=== PATIENT | male | born 1955 | race Caucasian/White ===

== ENCOUNTER 2016-09-28 14:01 | Inpatient (IN) | payer OTHER, MEDICARE ==
[~2016-09-28] VITALS: Ht 190.5 cm; Wt 94.5 kg
[~2016-09-28 14:01] MED LIST: AMLO5TAB22 PO; ASPI81TA82 PO; CLON.1 PO; INSU100V2 IJ; INSU100V3 SC; LISI-363 PO; LOPR50TA12 PO; NIAC50TA PO; OXYC1SOL5 PO; PRAV20 PO
[2016-09-28 14:04] VITALS: BP 129/62; PULSE 64; RESP 20; TEMP 98.3; O2SAT 100
--- NOTE | 2016-09-28 16:13 | PD ---
HPI Chief Complaint: Medical Clearance Time Seen by Provider: 16:08 Travel History International Travel<30 days: No Contact w/Intl Traveler<30days: No Traveled to known affect area: No History of Present Illness HPI 60-year-old patient with history of diabetes, has had tilt limitations in the past, presents to the ER sent in by his bench assembler for a right pinky toe amputation due to chronic ulcer, diabetic toe. He denies any fevers or any other issues. Modifying Factors: None Associated Signs & Symptoms: Right toe amputation, sent in by bench assembler Risk Factors: Diabetes PFSH Past Medical History Arthritis: No Asthma: No Autoimmune Disease: No Blood Disorders: No Anxiety: No Depression: No Heart Rhythm Problems: No Cancer: No Cardiovascular Problems: Yes Chemotherapy: No Chest Pain: No Congestive Heart Failure: No COPD: No Cerebrovascular Accident: No Diabetes: Yes Diminished Hearing: No GERD: No Glaucoma: No Genitourinary: No Hepatitis: No Hiatal Hernia: No Hypertension: Yes Immune Disorder: No Kidney Stones: No Musculoskeletal: No Neurologic: No Psychiatric: No Reproductive: No Respiratory: No Integumentary: Yes (HX OF DIABETIC FOOT ULCERS) Radiation Therapy: No Renal Failure: No Seizures: No Sickle Cell Disease: No Sleep Apnea: No Thyroid Disease: No Ulcer: No Past Surgical History Abdominal Surgery: No Arteriovenous Shunt: No Cardiac Surgery: No Ear Surgery: No Eye Surgery: Yes (RIGHT EYE PPV, CATARACT SURGERY BILATERAL EYES) Genitourinary Surgery: No Gynecologic Surgery: No Insulin Pump: No Joint Replacement: No Oral Surgery: No Pacemaker: No Thoracic Surgery: No Other Surgery: Yes (4TH AND PINKY TOE AMPUTATION ON LEFT FOOT) Social History Alcohol Use: Yes (OCCASIONAL) Tobacco Use: No Substance Use: No Allergies-Medications (Allergen,Severity, Reaction): Coded Allergies: Penicillin (Verified Allergy, Severe, 09/28/16) CHILDHOOD ALLERGY *MDRO Multi-Drug Resistant Organism (Verified Adverse Reaction, Unknown, ) MRSA foot wound 07/2015 Reported Meds & Prescriptions Reported Meds & Active Scripts Active Catapres (Clonidine HCl) 0.1 Mg Tab 0.1 Mg PO Q8HR 30 Days Oxycodone/Acetaminophen 5 mg/325 mg 5 mg/325 mg Tab 1 Tab PO Q6H PRN 7 Days Reported Niacin 50 Mg Tab 0 PO DAILY UNKNOWN DOSE Aspir-81 (Aspirin) 81 Mg Tab 81 Mg PO DAILY Amlodipine Besylate 5 mg (Amlodipine Besylate) 5 Mg Tab 1 Tab PO DAILY Pravastatin Sodium 20 Mg Tab 1 Tab PO HS Humulin R (Insulin Human Regular) 100 Units/Ml Vial 1 IJ BID Lopressor (Metoprolol Tartrate) 50 Mg Tab 50 Mg PO BID Lisinopril 20 mg (Lisinopril) 20 Mg Tab 20 Mg PO BID Humulin N (Insulin Human NPH) Inj 40-60 Units SC BIDAC SLIDING SCALE Review of Systems Except as stated in HPI: all other systems reviewed are Neg Physical Exam Narrative GENERAL: Well-developed middle age white male patient currently not acute distress. Awake and oriented 3. SKIN: Focused skin assessment warm/dry. HEAD: Atraumatic. Normocephalic. EYES: Pupils equal and round. No scleral icterus. No injection or drainage. ENT: No nasal bleeding or discharge. Mucous membranes pink and moist. NECK: Trachea midline. No JVD. CARDIOVASCULAR: Regular rate and rhythm. No murmur appreciated. RESPIRATORY: No accessory muscle use. Clear to auscultation. Breath sounds equal bilaterally. GASTROINTESTINAL: Abdomen soft, non-tender, nondistended. Hepatic and splenic margins not palpable. MUSCULOSKELETAL: No obvious deformities. No clubbing. No cyanosis. No edema. NEUROLOGICAL: Awake and alert. No obvious cranial nerve deficits. Motor grossly within normal limits. Normal speech. PSYCHIATRIC: Appropriate mood and affect; insight and judgment normal. Right foot: There is a notable right toe ulcerated area with no significant surrounding erythema at this point. Data Data Last Documented VS Vital Signs Date Time Temp Pulse Resp B/P Pulse Ox O2 Delivery O2 Flow Rate FiO2 09/28/16 14:04 98.3 64 20 129/62 100 Room Air Orders Complete Blood Count With Diff (09/28/16 16:08) Basic Metabolic Panel (Bmp) (09/28/16 16:08) Consult Podiatry (09/28/16 ) [facility] Medical Decision Making Medical Screen Exam Complete: Yes Emergency Medical Condition: Yes Medical Record Reviewed: Yes Differential Diagnosis Right toe amputation Narrative Course Case was briefly discussed with Dr. Randall who would like me to medically admit the patient, planning on possible amputation tomorrow, nothing by mouth after midnight. Case was discussed with Dr. Mccormick for admission. Lab work was ordered for the patient. Diagnosis Primary Impression: Diabetic foot ulcer associated with type 2 diabetes mellitus Admitting Information Admitting Physician Requests: Admit Rosey Rosen MD Sep 28, 2016 16:12
[2016-09-28 16:37] LABS: AUTOMATED NEUTROPHIL # 6.2 TH/MM3 (1.8-7.7); BASOPHIL % 0.3 % (0.0-2.0); EOSINOPHIL # 0.2 TH/MM3 (0-0.4); EOSINOPHIL % 1.8 % (0.0-4.0); HEMO FLAGS DIFF FINAL; LYMPH % 21.2 % (9.0-44.0); LYMPHOCYTE # 1.9 TH/MM3 (1.0-4.8); MEAN CELL VOLUME 79.7 FL (80.0-100.0); MEAN CORPUSCULAR HEMOGLOBIN 26.4 PG (27.0-34.0); MEAN CORPUSCULAR HGB CONC 33.1 % (32.0-36.0); MONO % 7.7 % (0.0-8.0); PLATELET COUNT 331 TH/MM3 (150-450); RED BLOOD COUNT 4.02 MIL/MM3 (4.50-5.90); RED CELL DISTRIBUTION WIDTH 15.1 % (11.6-17.2)
[2016-09-28 16:55] LABS: BICARBONATE 24.8 MEQ/L (21.0-32.0); POTASSIUM 5.1 MEQ/L (3.5-5.1)
[2016-09-28] MEDS ORDERED: NALOXONE HCL 0.4 MG/ML AMP IV PRN (17:15)
[2016-09-28] MEDS ORDERED: ONDANSETRON HCL 4 MG/2 ML VIAL IVP PRN (17:15)
[2016-09-28] MEDS ORDERED: GLUCAGON 1 MG/ML VIAL OTHER PRN (17:15)
[2016-09-28] MEDS ORDERED: DEXTROSE 50% IN WATER 50 ML VIAL(D50) IV PUSH PRN (17:15)
[2016-09-28] MEDS ORDERED: ACETAMINOPHEN/HYDROcodone 325 MG/7.5 MG TAB PO PRN (17:15)
[2016-09-28] MEDS ORDERED: SODIUM CHLORIDE 0.9% FLUSH 10 ML FLUSH IV FLUSH PRN (17:15)
[2016-09-28] MEDS ORDERED: ACETAMINOPHEN/HYDROcodone 325 MG/5 MG TAB PO PRN (17:15)
[2016-09-28] MEDS ORDERED: MORPHINE SULFATE 4 MG/ML INJ IV PRN (17:15)
[2016-09-28] MEDS ORDERED: ACETAMINOPHEN 325 MG TAB PO PRN ×2 (17:15)
[2016-09-28] MEDS ORDERED: INSU100V3 SQ (17:22)
[2016-09-28] MEDS ORDERED: ASPI81TA5 PO (17:22)
[2016-09-28] MEDS ORDERED: AMLO5TAB2 PO (17:22)
[2016-09-28] MEDS ORDERED: INSU100V2 SQ (17:22)
[2016-09-28] MEDS ORDERED: METO50TA PO (17:24)
[2016-09-28] MEDS ORDERED: PERC5TAB12 PO (17:24)
[2016-09-28] MEDS ORDERED: NIAC50TA4 PO (17:24)
[2016-09-28] MEDS ORDERED: PRAV20TA2 PO (17:24)
[2016-09-28] MEDS ORDERED: LISI-515 PO (17:24)
--- NOTE | 2016-09-28 17:25 | HHI.HP ---
[facility]Staff Admission Diagnosis diabetes/toe amputation Diagnoses: Chief Complaint: Right foot ulcer Travel History International Travel<30 Days: No Contact w/Intl Traveler <30 Da: No Traveled to Known Affected Are: No History of Present Illness 60-year-old male with a past medical history of HTN, DM, HLD who was sent by his art history professor for amputation of his right pinkie toe. The patient states that he's had an ulcer on his right. Toe for quite some time, and has been receiving outpatient wound care management with his art history professor, Dr. Randall. He states that due to the worsening appearance of the wound, his art history professor recommended he come to the hospital for admission and amputation of his pinky toe tomorrow. Otherwise, the patient has been doing well and denies any complaints. He denies any fevers or chills. He denies any pain in his foot. He denies any chest pain, shortness of breath, headache, lightheadedness, dizziness, numbness, tingling, nausea, vomiting, diarrhea, constipation. He does state that he had a fall a few weeks ago, with some occasional spasms of his right flank. Review of Systems Except as stated in HPI: all other systems reviewed are Neg Past Family Social History Past Medical History Hypertension Hyperlipidemia Diabetes mellitus Past Surgical History Left foot toe amputations Bone removed from right great toe Cataract surgery Reported Medications Humulin N Inj (Insulin Human NPH) 1,000 Unit/10 Ml Vial 65 Units SQ BID Humulin R Inj (Insulin Human Regular) 1,000 Unit/10 Ml Vial sliding scale, usually 20 Units SQ BIDAC Aspirin DR (Aspirin) 81 Mg Tabdr 81 Mg PO DAILY Amlodipine (Amlodipine Besylate) 5 Mg Tab 5 Mg PO DAILY Allergies: Coded Allergies: Penicillin (Verified Allergy, Severe, 09/28/16) CHILDHOOD ALLERGY *MDRO Multi-Drug Resistant Organism (Verified Adverse Reaction, Unknown, ) MRSA foot wound 07/2015 Active Ordered Medications Current Medications Medications (Trade) Dose Ordered Sig/Mirna Route Start Time Stop Time Status Last Admin (NS 1000 ml Inj) 1,000 ml @ 100 mls/hr Q10H IV 09/28/16 17:08 UNV (NS Flush) 2 ml UNSCH PRN IV FLUSH 09/28/16 17:15 UNV (NS Flush) 2 ml BID IV FLUSH 09/28/16 21:00 UNV (Tylenol) 650 mg Q4H PRN PO 09/28/16 17:15 UNV (Zofran Inj) 4 mg Q6H PRN IVP 09/28/16 17:15 UNV (Colace) 100 mg Q12H PO 09/28/16 17:15 UNV (Tylenol) 650 mg Q6H PRN PO 09/28/16 17:15 UNV ([place] 5-325 Mg) 1 tab Q4H PRN PO 09/28/16 17:15 UNV ([place] 7.5-325 Mg) 1 tab Q4H PRN PO 09/28/16 17:15 UNV (Morphine Inj) 4 mg Q3H PRN IV 09/28/16 17:15 UNV (Narcan Inj) 0.4 mg UNSCH PRN IV 09/28/16 17:15 UNV (D50w (Vial) Inj) 25 ml UNSCH PRN IV PUSH 09/28/16 17:15 UNV (Glucagon Inj) 1 mg UNSCH PRN OTHER 09/28/16 17:15 UNV (NovoLIN N INJ) 65 units BID@08,17 SQ 09/29/16 08:00 UNV Family History Father had heart bypass surgery Social History Denies alcohol, tobacco, or drug use Lives alone Physical Exam Vital Signs Vital Signs Date Time Temp Pulse Resp B/P Pulse Ox O2 Delivery O2 Flow Rate FiO2 09/28/16 14:04 98.3 64 20 129/62 100 Room Air Physical Exam GENERAL: Well-developed well-nourished. In no acute distress. SKIN: Warm and dry. Right foot ulcer. HEENT: Normocephalic. Pupils equal and round. Mucous membranes pink and moist. CARDIOVASCULAR: Regular rate and rhythm. No murmur appreciated. RESPIRATORY: No accessory muscle use. Clear to auscultation. Breath sounds equal bilaterally. GASTROINTESTINAL: Abdomen soft, non-tender, nondistended. Bowel sounds x4. MUSCULOSKELETAL: Decreased hair in the bilateral ankles with palpable peripheral pulses of the left foot and faint pulses on the right. No clubbing or cyanosis. No edema. NEUROLOGICAL: Awake and alert. No focal neurological deficits. Moves upper and lower extremities spontaneously. Normal speech. PSYCHIATRIC: Appropriate mood and affect; insight and judgment normal. Laboratory Laboratory Tests Test 09/28/16 16:20 White Blood Count 9.0 Red Blood Count 4.02 Hemoglobin 10.6 Hematocrit 32.0 Mean Corpuscular Volume 79.7 Mean Corpuscular Hemoglobin 26.4 Mean Corpuscular Hemoglobin 33.1 Concent Red Cell Distribution Width 15.1 Platelet Count 331 Mean Platelet Volume 7.8 Neutrophils (%) (Auto) 69.0 Lymphocytes (%) (Auto) 21.2 Monocytes (%) (Auto) 7.7 Eosinophils (%) (Auto) 1.8 Basophils (%) (Auto) 0.3 Neutrophils # (Auto) 6.2 Lymphocytes # (Auto) 1.9 Monocytes # (Auto) 0.7 Eosinophils # (Auto) 0.2 Basophils # (Auto) 0.0 CBC Comment DIFF FINAL Differential Comment Sodium Level 132 Potassium Level 5.1 Chloride Level 99 Carbon Dioxide Level 24.8 Anion Gap 8 Blood Urea Nitrogen 28 Creatinine 1.94 Estimat Glomerular Filtration 36 Rate Random Glucose 341 Calcium Level 8.9 Result Diagram: 09/28/16 1620 09/28/16 1620 Assessment and Plan Assessment and Plan 60-year-old male with a past medical history of HTN, DM, HLD who was sent by his art history professor for amputation of his right pinkie toe Right foot diabetic foot ulcer: Failed outpatient wound management. Sent by his art history professor, Dr. Diop, consulted. Afebrile with no leukocytosis. Antibiotics per podiatry. Continue pain control with oral and intravenous narcotics. Check preop EKG and coags. Diabetes mellitus: With hyperglycemia at this time, random glucose 341. Resume home NPH 65 units twice daily on a decreased dose while nothing by mouth. Continue sliding scale coverage. Monitor Accu-Cheks. MAITE on CKD stage III: Creatinine 1.94, previously 1.32 on 07/28/15. IVF. Follow -up BMP. Hold SARAH inhibitor for now. Hypertension/hyperlipidemia: Chronic, stable. Continue home medications. DVT prophylaxis: TEDs. Hold off on SCDs with probable underlying PAD. Start chemical prophylaxis when okay with surgery. Written by Ron Arriola, acting as scribe for Dr. Mccormick on 09/28/16 at 17:25. Discussed Condition With Patient Ron Arriola Sep 28, 2016 17:25 Krystle Mccormick MD Sep 28, 2016 17:49
[2016-09-28] MEDS ORDERED: INSULIN HUMAN NPH 1,000 UNITS/10 ML VIAL SQ ONE (17:45)
[2016-09-28] MEDS: DOCUSATE SODIUM 100 MG CAP PO SCH (18:16)
--- NOTE | 2016-09-28 20:57 | EKG ---
Date Performed: 09/28/2016 Time Performed: 18:18:26 PTAGE: 60 years EKG: Sinus rhythm POSSIBLE RIGHT VENTRICULAR CONDUCTION DELAY BORDERLINE ECG NO SIGNIFICANT CHANGE FROM PRIOR ELECTROC ARDIOGRAM. PREVIOUS TRACING : 07/22/2015 14.19 DOCTOR: Jeffrey Calvo Interpretating Date/Time 09/28/2016 20:56:57
[2016-09-28 21:00] VITALS: BP 155/70; PULSE 71; RESP 18; TEMP 97.6; O2SAT 99
[2016-09-28] MEDS: SODIUM CHLORIDE 0.9% FLUSH 10 ML FLUSH IV FLUSH SCH (21:00)
[2016-09-28] MEDS: METOPROLOL TARTRATE 50 MG TAB PO SCH (22:28)
[2016-09-28] MEDS: INSULIN ASPART SUPPLEMENTAL SCALE SQ SCH (22:28)
[2016-09-28] MEDS: PRAVASTATIN SOD 20 MG TAB PO SCH (22:28)
[2016-09-29] VITALS (7 sets, daily range): BP systolic 150–191; BP diastolic 65–83; PULSE 58–69; RESP 17–19; TEMP 96.7–97.9; O2SAT 97–99
[2016-09-29] MEDS: SODIUM CHLOR 0.9% 1000 ML INJ 1,000 ML IV SCH ×2 (04:15→11:20)
[2016-09-29] MEDS: DOCUSATE SODIUM 100 MG CAP PO SCH ×2 (05:22→23:24)
[2016-09-29] MEDS: INSULIN ASPART SUPPLEMENTAL SCALE SQ SCH ×4 (06:27→21:00)
[2016-09-29 07:44] LABS: AUTOMATED NEUTROPHIL # 6.1 TH/MM3 (1.8-7.7); BASOPHIL % 0.4 % (0.0-2.0); EOSINOPHIL # 0.2 TH/MM3 (0-0.4); EOSINOPHIL % 2.3 % (0.0-4.0); HEMATOCRIT 30.9 % (39.0-51.0); HEMO FLAGS DIFF FINAL; LYMPH % 23.3 % (9.0-44.0); LYMPHOCYTE # 2.1 TH/MM3 (1.0-4.8); MEAN CELL VOLUME 79.5 FL (80.0-100.0); MEAN CORPUSCULAR HEMOGLOBIN 26.8 PG (27.0-34.0); MEAN CORPUSCULAR HGB CONC 33.7 % (32.0-36.0); MONO % 6.9 % (0.0-8.0); NEUT % 67.1 % (16.0-70.0); PLATELET COUNT 339 TH/MM3 (150-450); RED BLOOD COUNT 3.89 MIL/MM3 (4.50-5.90); RED CELL DISTRIBUTION WIDTH 15.2 % (11.6-17.2); WHITE BLOOD COUNT 9.1 TH/MM3 (4.0-11.0)
[2016-09-29 07:52] LABS: PROTHROMBIN TIME - PATIENT 11.2 SEC (9.8-11.6)
[2016-09-29] MEDS: INSULIN HUMAN NPH 1,000 UNITS/10 ML VIAL SQ SCH ×2 (08:00→17:00)
[2016-09-29 08:11] LABS: ALKALINE PHOSPHATASE 116 U/L (45-117); ALT (GPT) 20 U/L (12-78); ANION GAP 4 MEQ/L (5-15); AST (GOT) 22 U/L (15-37); BLOOD UREA NITROGEN 26 MG/DL (7-18); CHLORIDE 106 MEQ/L (98-107); GLOMERULAR FILTRATION RATE 42 ML/MIN (>89); POTASSIUM 4.1 MEQ/L (3.5-5.1); SODIUM (NA) 140 MEQ/L (136-145); TOTAL BILIRUBIN ADULT 0.3 MG/DL (0.2-1.0)
[2016-09-29] MEDS: SODIUM CHLORIDE 0.9% FLUSH 10 ML FLUSH IV FLUSH SCH ×2 (08:41→23:25)
[2016-09-29] MEDS: METOPROLOL TARTRATE 50 MG TAB PO SCH ×2 (08:41→23:25)
[2016-09-29] MEDS ORDERED: amLODIPine BESYLATE 5 MG TAB PO SCH (09:00)
--- NOTE | 2016-09-29 09:09 | MB ---
cc: SABINA BARRIENTOS DPM DATE OF CONSULTATION: 09/29/2016 DATE OF : 1955 HISTORY OF PRESENT ILLNESS The patient is a 60-year-old patient of Dr. Randall. He has a history of right toe ulceration chronic for some time and was recommended for surgical intervention by Dr. Randall. Additionally worsening appearance of a heel wound on the left side which was positive for osteomyelitis on outpatient MRI. The patient denies nausea, vomiting, fever, diarrhea or chills. REVIEW OF SYSTEMS A review of systems is unremarkable. PAST MEDICAL HISTORY 1. Hypertension. 2. Hyperlipidemia. 3. Diabetes mellitus. PAST SURGICAL HISTORY 1. Multiple foot amputations. 2. Cataract surgery. MEDICATIONS 1. Humulin N. 2. Humulin R. 3. Aspirin. 4. Amlodipine. ALLERGIES PENICILLIN. PHYSICAL EXAMINATION Lower extremities warm to warm bilaterally. Diminished DP and PT bilaterally. CFT less than 5 seconds. Right fifth digit is ulcerated. Probing does not demonstrate exposed bone. He has a fifth digit varus deformity. There is no pain on palpation. Muscle strength is intact, +5/5 in all quadrants. Left leg with an ulceration on the left lateral fifth metatarsal base distal to the calcaneus. There is some serous drainage, macerated with keratotic tissue periwound. LABORATORY TESTS 09/28/2016 WBC of 9. 09/29/2016 WBC 9.1, RBC 3.89, H&H 10.4 and 30.9. ASSESSMENT 1. Left foot calcaneal osteomyelitis. 2. Right fifth digit chronic ulceration, diabetic, failed outpatient management. Risks, benefits, pros and cons were discussed with the patient, freely consents for surgical intervention. PLAN 1. Right fifth digit amputation. 2. Left foot bone biopsy. No guarantees were given or implied. All questions answered. Plan for surgery on 09/29/2016 at 1530 hours. Also plan for ID consult with a PICC line for his osteomyelitis for six weeks. Will continue to follow the patient while in-house. Sabina Barrientos DPM SR/BT /8:42 AM /9:00 AM
[2016-09-29] MEDS ORDERED: ONDANSETRON HCL 4 MG/2 ML VIAL IV PUSH ONE (12:00)
[2016-09-29] MEDS ORDERED: PROPOFOL 200 MG/20 ML AMP IV ONE (12:00)
[2016-09-29] MEDS ORDERED: ePHEDrine/NS 25 MG/5 ML SYR IV ONE (12:00)
[2016-09-29] MEDS ORDERED: POVIDONE IODINE 5% (ANTISEPSIS KIT) 4 APPLICATIONS EACH NARE PRN (12:30)
[2016-09-29] MEDS ORDERED: SODIUM CHLORID 0.9% 500 ML IV PRN (12:30)
[2016-09-29] MEDS ORDERED: INSULIN HUMAN REGULAR 1,000 UNITS/10 ML VIAL SQ PRN (12:30)
[2016-09-29] MEDS ORDERED: METOPROLOL TARTRATE 25 MG TAB PO PRN (12:30)
[2016-09-29] MEDS ORDERED: CHLORHEXIDINE GLUCONATE 2 % 1 PACK (2 CLOTHS) TOPICAL PRN (12:30)
[2016-09-29] MEDS ORDERED: LACTATED RINGER'S 1000 ML IV PRN (12:30)
--- NOTE | 2016-09-29 12:30 | RADRPT ---
EXAM DATE/TIME: 09/28/2016 00:00 [facility] COMPARISON: No previous studies available for comparison. INDICATIONS : Diabetes, toe amputation TECHNIQUE: Five-station segmental examination of the lower extremities was performed. Pulsed-cuff waveform tracings and pressures were recorded. Ankle-brachial indices and toe-brachial indices were calculated. PRESSURES (mmHg): Brachial (arm): Right iv site Left 140 Lower Thigh: Right 180 Left 193 Calf: Right CNO Left 187 Ankle: Right 159 Left 152 Toe: Right 101 Left 73 LEI: Right 1.14 Left 1.09 TBI: Right 0.72 Left 0.52 PULSED CUFF WAVEFORMS: There is diminished amplitude and pressures in the left toe. LEI is normal the ankles. CT angiograp hy may be of benefit to exclude embolization on the right. There is evidence for inflow stenosis. CONCLUSION: Unremarkable segmental evaluation of the lower extremities. [place] MD FACR on September 29, 2016 at 12:27 Board Certified Radiologist. This report was verified electronically.
--- NOTE | 2016-09-29 13:16 | HHI.PR ---
Subjective Remarks Laying in bed he had toe amputation today, no fever or chills no chest pain, the pressure still not controlled with increased amlodipine seen ID consult placed for antibiotic management Objective Vitals Vital Signs Date Time Temp Pulse Resp B/P Pulse Ox O2 Delivery O2 Flow Rate FiO2 09/29/16 12:42 97.0 58 18 169/77 97 09/29/16 09:02 97.7 68 18 172/77 98 09/29/16 04:15 97.1 68 17 158/70 99 09/29/16 00:00 97.9 69 17 150/65 97 09/28/16 21:00 97.6 71 18 155/70 99 09/28/16 14:04 98.3 64 20 129/62 100 Room Air I/O 09/28/16 09/28/16 09/28/16 09/29/16 09/29/16 09/29/16 07:00 15:00 23:00 07:00 15:00 23:00 Intake Total 400 ml 600 ml Output Total 600 ml 900 ml Balance -200 ml -300 ml Intake Oral 400 ml 600 ml Output Urine Total 600 ml 900 ml # Bowel Movements 0 0 Result Diagram: 09/29/16 0709/29/1611 Objective Remarks GENERAL: Well-developed well-nourished. In no acute distress. SKIN: Warm and dry. Right foot ulcer. HEENT: Normocephalic. Pupils equal and round. Mucous membranes pink and moist. CARDIOVASCULAR: Regular rate and rhythm. No murmur appreciated. RESPIRATORY: No accessory muscle use. Clear to auscultation. Breath sounds equal bilaterally. GASTROINTESTINAL: Abdomen soft, non-tender, nondistended. Bowel sounds x4. MUSCULOSKELETAL: Decreased hair in the bilateral ankles with palpable peripheral pulses of the left foot and faint pulses on the right. No clubbing or cyanosis. No edema. NEUROLOGICAL: Awake and alert. No focal neurological deficits. Moves upper and lower extremities spontaneously. Normal speech. PSYCHIATRIC: Appropriate mood and affect; insight and judgment normal. A/P Assessment and Plan 60-year-old male with a past medical history of HTN, DM, HLD who was sent by his slip cover seamstress for amputation of his right pinkie toe Right foot diabetic foot ulcer: Failed outpatient wound management. Sent by his slip cover seamstress, Dr. Diop, Afebrile with no leukocytosis. Antibiotics per podiatry. Continue pain control with oral and intravenous narcotics. Check preop EKG and coags. Diabetes mellitus: With hyperglycemia at this time, random glucose 341. Resume home NPH 65 units twice daily on a decreased dose while nothing by mouth. Continue sliding scale coverage. Monitor Accu-Cheks. MAITE on CKD stage III: Creatinine trending down 1.94-1.68. IVF. Follow-up BMP. Hold SARAH inhibitor for now. Hypertension/hyperlipidemia: Chronic, stable. Continue home medications. Increase amlodipine DVT prophylaxis: TEDs. Hold off on SCDs with probable underlying PAD. Start chemical prophylaxis when okay with surgery. Krystle Mccormick MD Sep 29, 2016 13:16
[2016-09-29] MEDS ORDERED: BUPIVACAINE HCL PF 0.5% 30 ML VIAL ONE (16:54)
[2016-09-29] MEDS ORDERED: LIDOCAINE HCL 2% 50 ML VIAL ONE (16:54)
[2016-09-29] MEDS ORDERED: GENTAMICIN SULFATE 80 MG/2 ML VIAL ONE (16:55)
[2016-09-29] MEDS ORDERED: DO NOT ADM ANY ANTICOAGULANT DRUGS PRN (18:15)
--- NOTE | 2016-09-29 19:50 | RADRPT ---
EXAM DATE/TIME: 09/29/2016 18:51 [facility] COMPARISON: FOOT RIGHT LIMITED (2VWS), February 06, 2013, 13:06. INDICATIONS : Post op right toe amputation MEDICAL HISTORY : None. SURGICAL HISTORY : None. ENCOUNTER: Initial ACUITY: 1 day PAIN SCORE: 0/10 LOCATION: Right foot FINDINGS: The patient appears to be status post resection of the distal aspect of the first metatarsal and prox imal aspect of the first proximal phalanx. There also appears to be either extensive erosive change or postsurgical change at the second through fourth MTP joints. These findings were present previousl y. The digits appear to have hammertoe deformities. CONCLUSION: Extensive chronic changes as described above. A definite acute abnormality is not cl early identified. Fei Rodriguez MD on September 29, 2016 at 19:39 Board Certified Radiologist. This report was verified electronically.
[2016-09-29] MEDS: PRAVASTATIN SOD 20 MG TAB PO SCH (23:25)
[2016-09-30] VITALS (8 sets, daily range): BP systolic 152–187; BP diastolic 70–88; PULSE 57–71; RESP 18–20; TEMP 96.2–97.3; O2SAT 96–98
[2016-09-30] MEDS: DOCUSATE SODIUM 100 MG CAP PO SCH ×2 (05:57→17:58)
[2016-09-30] MEDS: INSULIN ASPART SUPPLEMENTAL SCALE SQ SCH ×4 (06:11→21:00)
[2016-09-30] MEDS: SODIUM CHLORIDE 0.9% FLUSH 10 ML FLUSH IV FLUSH SCH ×2 (09:00→20:52)
[2016-09-30] MEDS: METOPROLOL TARTRATE 50 MG TAB PO SCH ×2 (09:00→20:52)
[2016-09-30] MEDS: INSULIN HUMAN NPH 1,000 UNITS/10 ML VIAL SQ SCH ×2 (09:12→17:58)
[2016-09-30] MEDS: SODIUM CHLOR 0.9% 1000 ML INJ 1,000 ML IV SCH ×3 (10:00→20:00)
[2016-09-30] MEDS ORDERED: Vancomycin Consult Pharmacy 1 EA OTHER SCH (11:45)
[2016-09-30] MEDS ORDERED: VANCOMYCIN INJ 1,500 MG in SODIUM CHLORID 0.9% 500 ML INJ 500 ML IV ONE (12:00)
--- NOTE | 2016-09-30 12:05 | PD.POD ---
Subjective Podiatric Problems s/p R 5th digit amputation s/p Left calcaneal bone biopsy DOS 08/01/16 Doing well at bedside this am. Pain scale used: 0-10 numeric scale Pain score: 0 Past Med/Surg/Social History Social History Smoking Status: Never Smoker Objective Vital Signs Vital Signs Date Time Temp Pulse Resp B/P Pulse Ox O2 Delivery O2 Flow Rate FiO2 09/30/16 11:30 96 21 09/30/16 09:02 96.2 59 18 187/84 97 09/30/16 04:00 96.3 57 20 164/75 97 09/30/16 00:00 96.6 68 20 167/77 98 09/29/16 20:00 96.7 68 19 168/72 97 09/29/16 19:00 97.7 78 15 148/78 97 Room Air 09/29/16 18:45 68 17 154/68 98 Room Air 09/29/16 18:30 79 15 147/72 97 Nasal Cannula 2 09/29/16 18:18 97.5 69 15 169/77 100 Nasal Cannula 2 09/29/16 15:20 97.0 62 18 191/83 98 09/29/16 12:42 97.0 58 18 169/77 97 Coded Allergies: Penicillin (Verified Allergy, Severe, 09/28/16) CHILDHOOD ALLERGY *MDRO Multi-Drug Resistant Organism (Verified Adverse Reaction, Unknown, ) MRSA foot wound 07/2015 Other Results Laboratory Tests Test 09/28/16 09/29/16 16:20 07:11 Red Blood Count 4.02 MIL/MM3 3.89 MIL/MM3 (4.50-5.90) (4.50-5.90) Hemoglobin 10.6 GM/DL 10.4 GM/DL (13.0-17.0) (13.0-17.0) Hematocrit 32.0 % 30.9 % (39.0-51.0) (39.0-51.0) Mean Corpuscular Volume 79.7 FL 79.5 FL (80.0-100.0) (80.0-100.0) Mean Corpuscular Hemoglobin 26.4 PG 26.8 PG (27.0-34.0) (27.0-34.0) Sodium Level 132 MEQ/L (136-145) Blood Urea Nitrogen 28 MG/DL (7-18) 26 MG/DL (7-18) Creatinine 1.94 MG/DL 1.68 MG/DL (0.60-1.30) (0.60-1.30) Estimat Glomerular Filtration 36 ML/MIN (>89) 42 ML/MIN (>89) Rate Random Glucose 341 MG/DL (74-106) Anion Gap 4 MEQ/L (5-15) Albumin 2.4 GM/DL (3.4-5.0) Laboratory Tests Test 09/29/16 07:11 White Blood Count 9.1 TH/MM3 Red Blood Count 3.89 MIL/MM3 Hemoglobin 10.4 GM/DL Hematocrit 30.9 % Mean Corpuscular Volume 79.5 FL Mean Corpuscular Hemoglobin 26.8 PG Mean Corpuscular Hemoglobin 33.7 % Concent Red Cell Distribution Width 15.2 % Platelet Count 339 TH/MM3 Mean Platelet Volume 7.9 FL Neutrophils (%) (Auto) 67.1 % Lymphocytes (%) (Auto) 23.3 % Monocytes (%) (Auto) 6.9 % Eosinophils (%) (Auto) 2.3 % Basophils (%) (Auto) 0.4 % Neutrophils # (Auto) 6.1 TH/MM3 Lymphocytes # (Auto) 2.1 TH/MM3 Monocytes # (Auto) 0.6 TH/MM3 Eosinophils # (Auto) 0.2 TH/MM3 Basophils # (Auto) 0.0 TH/MM3 CBC Comment DIFF FINAL Differential Comment Prothrombin Time 11.2 SEC Prothromb Time International 1.0 RATIO Ratio Sodium Level 140 MEQ/L Potassium Level 4.1 MEQ/L Chloride Level 106 MEQ/L Carbon Dioxide Level 30.0 MEQ/L Anion Gap 4 MEQ/L Blood Urea Nitrogen 26 MG/DL Creatinine 1.68 MG/DL Estimat Glomerular Filtration 42 ML/MIN Rate Random Glucose 105 MG/DL Calcium Level 8.6 MG/DL Total Bilirubin 0.3 MG/DL Aspartate Amino Transf 22 U/L (AST/SGOT) Alanine Aminotransferase 20 U/L (ALT/SGPT) Alkaline Phosphatase 116 U/L Total Protein 7.4 GM/DL Albumin 2.4 GM/DL Exam-Podiatry Dermatological Exam Ulcers: Location/Measurements B/L LE Intact dressing no strikethrough to outer dressing. ROM intact and no POP. LE warm Assessment & Plan Diagnosis: (1) Osteomyelitis Status: Acute (2) Diabetic foot ulcer associated with type 2 diabetes mellitus Status: Acute A/P Pending bone biopsy. If positive plan for 6 weeks IV abx. Will continue to f/u. OK to WB as tolerated. Plan fro f/u with Dr Randall as an out patient. Sabina Barrientos DPM Sep 30, 2016 12:05
--- NOTE | 2016-09-30 14:53 | HHI.PR ---
Subjective Remarks Patient complain of fascicular rash showed on his left arm around the elbow, patient has multiple scattered excoriations on this arm stated it's due cat Scratch Continue on vancomycin for the OM further antibiotic recommendation per ID was consulted Objective Vitals Vital Signs Date Time Temp Pulse Resp B/P Pulse Ox O2 Delivery O2 Flow Rate FiO2 09/30/16 12:13 97.3 68 18 152/70 98 09/30/16 11:30 96 21 09/30/16 09:02 96.2 59 18 187/84 97 09/30/16 04:00 96.3 57 20 164/75 97 09/30/16 00:00 96.6 68 20 167/77 98 09/29/16 20:00 96.7 68 19 168/72 97 09/29/16 19:00 97.7 78 15 148/78 97 Room Air 09/29/16 18:45 68 17 154/68 98 Room Air 09/29/16 18:30 79 15 147/72 97 Nasal Cannula 2 09/29/16 18:18 97.5 69 15 169/77 100 Nasal Cannula 2 09/29/16 15:20 97.0 62 18 191/83 98 I/O 09/29/16 09/29/16 09/29/16 09/30/16 09/30/16 09/30/16 07:00 15:00 23:00 07:00 15:00 23:00 Intake Total 600 ml 1090 ml Output Total 900 ml 10 ml 300 ml Balance -300 ml 1080 ml -300 ml Intake Oral 600 ml 240 ml IV Total 50 ml Other 800 ml Output Urine Total 900 ml 300 ml Estimated Blood Loss 10 ml # Voids 0 # Bowel Movements 0 0 0 Result Diagram: 09/29/16 0711 09/29/16 0711 Objective Remarks GENERAL: Well-developed well-nourished. In no acute distress. SKIN: Warm and dry. Right foot in gauze, vesicle skin rash on the left arm around the elbow with a 1.5 cm tense bulla HEENT: Normocephalic. Pupils equal and round. Mucous membranes pink and moist. CARDIOVASCULAR: Regular rate and rhythm. No murmur appreciated. RESPIRATORY: No accessory muscle use. Clear to auscultation. Breath sounds equal bilaterally. GASTROINTESTINAL: Abdomen soft, non-tender, nondistended. Bowel sounds x4. MUSCULOSKELETAL: Decreased hair in the bilateral ankles with palpable peripheral pulses of the left foot and faint pulses on the right. No clubbing or cyanosis. No edema. NEUROLOGICAL: Awake and alert. No focal neurological deficits. Moves upper and lower extremities spontaneously. Normal speech. PSYCHIATRIC: Appropriate mood and affect; insight and judgment normal. A/P Assessment and Plan 60-year-old male with a past medical history of HTN, DM, HLD who was sent by his founder and ceo for amputation of his right pinkie toe Right foot diabetic foot ulcer: Failed outpatient wound management. Sent by his founder and ceo, Dr. Diop, Afebrile with no leukocytosis. Podiatry consulted status post debridement, Started on Vanco. Continue pain control with oral and intravenous narcotics. Consulted ID for podiatry recommendation The cecal or skin rash on the right upper extremity with multiple old CAT Scratches: ID consulted Diabetes mellitus: With hyperglycemia at this time, random glucose 341. Resume home NPH 65 units twice daily on a decreased dose while nothing by mouth. Continue sliding scale coverage. Monitor Accu-Cheks. MAITE on CKD stage III: Creatinine trending down 1.94-1.68. IVF. Follow-up BMP. Hold SARAH inhibitor for now. Hypertension/hyperlipidemia: Chronic, stable. Continue home medications. Increase amlodipine DVT prophylaxis: TEDs. Hold off on SCDs with probable underlying PAD. Start chemical prophylaxis when okay with surgery. Krystle Mccormick MD Sep 30, 2016 14:53
[2016-09-30] MEDS: PRAVASTATIN SOD 20 MG TAB PO SCH (20:52)
[2016-10-01] VITALS (8 sets, daily range): BP systolic 132–186; BP diastolic 72–84; PULSE 61–88; RESP 18–20; TEMP 97.1–97.8; O2SAT 96–98
[2016-10-01] MEDS: DOCUSATE SODIUM 100 MG CAP PO SCH ×2 (05:40→17:29)
[2016-10-01] MEDS: INSULIN ASPART SUPPLEMENTAL SCALE SQ SCH ×4 (05:41→21:00)
[2016-10-01] MEDS: SODIUM CHLOR 0.9% 1000 ML INJ 1,000 ML IV SCH ×2 (06:00→16:00)
[2016-10-01 07:02] LABS: BICARBONATE 28.6 MEQ/L (21.0-32.0)
[2016-10-01] MEDS: INSULIN HUMAN NPH 1,000 UNITS/10 ML VIAL SQ SCH ×2 (08:31→17:29)
[2016-10-01] MEDS: SODIUM CHLORIDE 0.9% FLUSH 10 ML FLUSH IV FLUSH SCH ×2 (08:32→20:53)
[2016-10-01] MEDS: VANCOMYCIN INJ 2,000 MG in SODIUM CHLORID 0.9% 500 ML INJ 500 ML IV SCH (08:32)
[2016-10-01] MEDS: METOPROLOL TARTRATE 50 MG TAB PO SCH ×2 (08:33→20:53)
--- NOTE | 2016-10-01 11:14 | HHI.PR ---
Subjective Remarks Resting in bed comfortably afebrile, pain is tolerable, awaiting ID consultation for antibiotic management Objective Vitals Vital Signs Date Time Temp Pulse Resp B/P Pulse Ox O2 Delivery O2 Flow Rate FiO2 10/01/16 10:10 97 21 10/01/16 08:46 97.8 71 18 182/81 96 10/01/16 03:02 97.2 88 20 132/72 98 10/01/16 00:00 97.5 69 18 180/84 97 09/30/16 20:00 97.2 71 20 171/78 97 09/30/16 17:51 97 21 09/30/16 17:14 96.6 71 18 157/88 97 09/30/16 12:13 97.3 68 18 152/70 98 09/30/16 11:30 96 21 I/O 09/30/16 09/30/16 09/30/16 10/01/16 10/01/16 10/01/16 07:00 15:00 23:00 07:00 15:00 23:00 Intake Total 480 ml Output Total 300 ml 700 ml 300 ml Balance -300 ml -220 ml -300 ml Intake Oral 480 ml Output Urine Total 300 ml 700 ml 300 ml # Bowel Movements 0 Result Diagram: 09/29/16 0711 10/01/16 0601 Objective Remarks GENERAL: Well-developed well-nourished. In no acute distress. SKIN: Warm and dry. Right foot in gauze, vesicle skin rash on the left arm around the elbow with a 1.5 cm tense bulla HEENT: Normocephalic. Pupils equal and round. Mucous membranes pink and moist. CARDIOVASCULAR: Regular rate and rhythm. No murmur appreciated. RESPIRATORY: No accessory muscle use. Clear to auscultation. Breath sounds equal bilaterally. GASTROINTESTINAL: Abdomen soft, non-tender, nondistended. Bowel sounds x4. MUSCULOSKELETAL: Decreased hair in the bilateral ankles with palpable peripheral pulses of the left foot and faint pulses on the right. No clubbing or cyanosis. No edema. NEUROLOGICAL: Awake and alert. No focal neurological deficits. Moves upper and lower extremities spontaneously. Normal speech. PSYCHIATRIC: Appropriate mood and affect; insight and judgment normal. A/P Assessment and Plan 60-year-old male with a past medical history of HTN, DM, HLD who was sent by his printed circuit boards beveler for amputation of his right pinkie toe Right foot diabetic foot ulcer: Failed outpatient wound management. Sent by his printed circuit boards beveler, Dr. Diop, Afebrile with no leukocytosis. Podiatry consulted status post debridement, Started on Vanco. Continue pain control with oral and intravenous narcotics. 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 Resume home NPH 65 units twice daily on a decreased dose while nothing by mouth. Continue sliding scale coverage. Monitor Accu-Cheks. MAITE on CKD stage III: Creatinine trending down 1.94-1.68. IVF. Follow-up BMP. Hold SARAH inhibitor for now. Hypertension/hyperlipidemia: Chronic, stable. Continue home medications. Increase amlodipine DVT prophylaxis: TEDs. Hold off on SCDs with probable underlying PAD. Start chemical prophylaxis when okay with surgery. Krystle Mccormick MD Oct 01, 2016 11:14
[2016-10-01] MEDS: PRAVASTATIN SOD 20 MG TAB PO SCH (20:53)
--- NOTE | 2016-10-01 22:12 | PD.ID.CON ---
History of Present Illness Service ID Consult Requested By Dr Mccormick Reason for Consult osteomyelitis Primary Care Physician Jonathan Reid MD Diagnoses: History of Present Illness 60 yo male with h/o diabetic ulcerations b/l feet and mucltiple toes amputaitons Pt was admiitted with worsening wounds on b/l feet He has them on/off for months He had MRI as o/p which showed osteomyelitis Started on vanco Had surgery on R foot and bx on the left Sunday Clx P Review of Systems Except as stated in HPI: all other systems reviewed are Neg Past Family Social History Allergies: Coded Allergies: Penicillin (Verified Allergy, Severe, 09/28/16) CHILDHOOD ALLERGY *MDRO Multi-Drug Resistant Organism (Verified Adverse Reaction, Unknown, ) MRSA foot 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 No ETOH. No Illicit Drugs. lives alone Physical Exam Vital Signs Vital Signs Date Time Temp Pulse Resp B/P Pulse Ox O2 Delivery O2 Flow Rate FiO2 10/01/16 18:50 98 21 10/01/16 16:15 97.1 63 18 186/82 98 10/01/16 12:24 97.4 61 18 175/79 96 10/01/16 10:10 97 21 10/01/16 08:46 97.8 71 18 182/81 96 10/01/16 03:02 97.2 88 20 132/72 98 10/01/16 00:00 97.5 69 18 180/84 97 Physical Exam CONSTITUTIONAL/GENERAL: This is an adequately nourished patient, in no apparent distress. TUBES/LINES/DRAINS: SKIN: No jaundice, rashes, or lesions. Skin temperature appropriate. Not diaphoretic. HEAD: Atraumatic. Normocephalic. EYES: Pupils equal and round and reactive. Extraocular motions intact. No scleral icterus. No injection or drainage. Fundi not examined. ENT: Hearing grossly normal. Nose without bleeding or purulent drainage. Oral mucosae moist without visible erythema, exudates, masses, or lesions. poor dentition NECK: Trachea midline. Supple, nontender. CARDIOVASCULAR: Regular rate and rhythm without murmurs, gallops, or rubs. No JVD. Peripheral pulses symmetric. RESPIRATORY/CHEST: Symmetric, unlabored respirations. Clear to auscultation. Breath sounds equal bilaterally. No wheezes, rales, or rhonchi. GASTROINTESTINAL: Abdomen soft, non-tender, nondistended. No hepato-splenomegaly , or palpable masses. No guarding. Bowel sounds present. GENITOURINARY: Without palpable bladder distension. MUSCULOSKELETAL: Extremities without clubbing, cyanosis, +brawny edema. No joint tenderness or effusion noted. No calf tenderness. No mottling or clubbing. Surgical dressing in place LYMPHATICS: No palpable cervical or supraclavicular adenopathy. NEUROLOGICAL: Awake and alert. Motor and sensory grossly within normal limits. Follows commands. Normal speech. Moves all extremities. PSYCHIATRIC: No obvious anxiety/depression. no apparent hallucinations or other psychotic thought process. Laboratory Laboratory Tests Test 10/01/16 06:01 Sodium Level 141 Potassium Level 4.0 Chloride Level 107 Carbon Dioxide Level 28.6 Anion Gap 5 Blood Urea Nitrogen 21 Creatinine 1.47 Estimat Glomerular Filtration 49 Rate Random Glucose 65 Calcium Level 8.9 Date/Time Procedure Status Source Growth 09/29/16 17:45 Gram Stain - Final Resulted Wound Heel 09/29/16 17:45 Wound Culture - Preliminary Resulted Wound Heel NO GROWTH IN 48 HOURS. 09/29/16 17:45 Fungal Smear - Final Resulted Wound Toe NO FUNGAL ELEMENTS SEEN. 09/29/16 17:45 Fungal Culture Resulted Wound Toe Pending 09/29/16 17:45 Acid Fast Stain - Final Resulted Wound Toe NO ACID FAST BACILLI SEEN 09/29/16 17:45 Mycobacterial Culture Resulted Wound Toe Pending Result Diagram: 09/29/16 0711 10/01/16 0601 Imaging Last Impressions Foot X-Ray 09/29/16 0000 Signed Impressions: Service Date/Time: Thursday, September 29, 2016 18:51 - CONCLUSION: Extensive chronic changes as described above. A definite acute abnormality is not clearly identified. Fei Rodriguez MD Assessment and Plan Assessment and Plan DFI, ? osteo L foot cont vanco fu bx, clx Lenore Brandon MD Oct 01, 2016 22:12
[2016-10-02] VITALS: BP 160/78; PULSE 58; RESP 18; TEMP 98.5; O2SAT 98
[2016-10-02] MEDS: SODIUM CHLOR 0.9% 1000 ML INJ 1,000 ML IV SCH ×3 (02:00→21:29)
[2016-10-02 04:00] VITALS: BP 133/63; PULSE 57; RESP 18; TEMP 97; O2SAT 97
[2016-10-02] MEDS: DOCUSATE SODIUM 100 MG CAP PO SCH ×2 (06:11→17:16)
[2016-10-02] MEDS: INSULIN ASPART SUPPLEMENTAL SCALE SQ SCH ×4 (06:12→21:27)
[2016-10-02 07:53] VITALS: BP 142/74; PULSE 60; RESP 18; TEMP 97.2; O2SAT 98
[2016-10-02] MEDS: INSULIN HUMAN NPH 1,000 UNITS/10 ML VIAL SQ SCH ×2 (08:00→17:17)
[2016-10-02] MEDS: VANCOMYCIN INJ 2,000 MG in SODIUM CHLORID 0.9% 500 ML INJ 500 ML IV SCH (08:00)
--- NOTE | 2016-10-02 08:05 | MP ---
cc: JOHNY BARRIENTOS DPM DATE OF SURGERY: 09/29/2016 DATE OF : 1955 PREOPERATIVE DIAGNOSIS 1. Right fifth digit osteomyelitis. 2. Right fifth digit chronic ulcer. 3. Left calcaneal osteomyelitis. POSTOPERATIVE DIAGNOSIS 1. Right fifth digit osteomyelitis. 2. Right fifth digit chronic ulcer. 3. Left calcaneal osteomyelitis. PROCEDURE 1. Right fifth digit amputation. 2. Left calcaneal bone biopsy. SURGEON Dr. Barrientos ANESTHESIOLOGIST Dr. Darnell ANESTHESIA General. HEMOSTASIS None. ESTIMATED BLOOD LOSS Less than 5 cc. MATERIALS 3-0 nylon. INJECTABLES Postoperatively 10 cc 0.5% Marcaine plain. BRIEF HISTORY The patient is a 60-year-old male with longstanding history of hypertension, diabetes mellitus and hyperlipidemia. He has a chronic history of ulcers and osteomyelitis which was diagnosed on an MRI as an outpatient. He was followed by Dr. Randall and was recommended for surgical intervention. The patient agreed to the indicated procedure. The risks, benefits, pros and cons were discussed with the patient who freely consented to surgical intervention. No guarantees were given or implied. PROCEDURE IN DETAIL The patient was brought into the operating room and placed on the operating table in supine position. General anesthesia was administered. The bilateral feet were prepped, scrubbed and draped in the usual sterile aseptic manner. A tourniquet was applied to the right calf but never inflated. Attention was then directed to the left calcaneus where the anterior body of the calcaneus was noted. Using intraoperative fluoroscopy a bone biopsy was taken approximately 2 cm from the anterior pole of the calcaneus. This was done using a Jamshidi needle. It was passed off the field in two halves. One was sent to culture and the other half sent to pathology for gross examination. The incision was copiously irrigated with normal sterile saline and then closed with a single horizontal mattress suture. Attention was then directed to the right fifth digit where a disarticulation amputation of the right fifth digit was carried out at the MP joint. The digit was passed off table and sent to pathology as specimen. A culture was then taken of the MP joint and sent for aerobic, anaerobic, Gram stain culture and sensitivity. The incision was copiously irrigated with normal sterile saline. All necrotic nonviable tissue was debrided. No purulent necrotic tissue was noted at the MP joint. Bleeders were Bovie'd as necessary and then the incision was closed primarily using 3-0 nylon in a simple sure pattern. A right fifth MP joint block and left area block on the calcaneus was carried out using 10 cc 0.5% Marcaine plain in total. Dry sterile dressings were applied using Xeroform, 4x4s, Keyshawn and a light Geovanni wrap. The patient tolerated the procedure completion. He will be transferred to PACU for a brief period of post-op monitoring after which he will be transferred to the floor where he will be continued to be monitored. ZEKE Hawley /9:04 PM /7:50 AM
[2016-10-02] MEDS: SODIUM CHLORIDE 0.9% FLUSH 10 ML FLUSH IV FLUSH SCH ×2 (08:49→21:27)
[2016-10-02] MEDS: METOPROLOL TARTRATE 50 MG TAB PO SCH ×2 (08:49→21:27)
[2016-10-02 12:08] VITALS: BP 165/71; PULSE 53; RESP 18; TEMP 96.3; O2SAT 98
--- NOTE | 2016-10-02 15:26 | HHI.PR ---
Subjective Remarks Comfortably resting in bed afebrile No abdominal pain nausea or vomiting Continue current antibiotic and follow bone biopsy Objective Vitals Vital Signs Date Time Temp Pulse Resp B/P Pulse Ox O2 Delivery O2 Flow Rate FiO2 10/02/16 12:08 96.3 53 18 165/71 98 10/02/16 07:53 97.2 60 18 142/74 98 10/02/16 04:00 97.0 57 18 133/63 97 10/02/16 00:00 98.5 58 18 160/78 98 10/01/16 20:00 97.6 65 20 172/79 96 10/01/16 18:50 98 21 10/01/16 16:15 97.1 63 18 186/82 98 I/O 10/01/16 10/01/16 10/01/16 10/02/16 10/02/16 10/02/16 07:00 15:00 23:00 07:00 15:00 23:00 Intake Total 360 ml 360 ml 360 ml 600 ml Output Total 600 ml 800 ml 240 ml Balance 360 ml -240 ml -800 ml 360 ml 360 ml Intake Oral 360 ml 360 ml 360 ml 600 ml Output Urine Total 600 ml 800 ml 240 ml # Voids 1 1 # Bowel Movements 1 Result Diagram: 09/29/16 0711 10/01/16 0601 Objective Remarks GENERAL: Well-developed well-nourished. In no acute distress. SKIN: Warm and dry. Right foot in gauze, vesicle skin rash on the left arm around the elbow with a 1.5 cm tense bulla HEENT: Normocephalic. Pupils equal and round. Mucous membranes pink and moist. CARDIOVASCULAR: Regular rate and rhythm. No murmur appreciated. RESPIRATORY: No accessory muscle use. Clear to auscultation. Breath sounds equal bilaterally. GASTROINTESTINAL: Abdomen soft, non-tender, nondistended. Bowel sounds x4. MUSCULOSKELETAL: Decreased hair in the bilateral ankles with palpable peripheral pulses of the left foot and faint pulses on the right. No clubbing or cyanosis. No edema. NEUROLOGICAL: Awake and alert. No focal neurological deficits. Moves upper and lower extremities spontaneously. Normal speech. PSYCHIATRIC: Appropriate mood and affect; insight and judgment normal. A/P Assessment and Plan 10/02: Continue current care on vancomycin awaiting bone biopsy culture result, creatinine improved to 1.47, monitor BMP A/P: 60-year-old male with a past medical history of HTN, DM, HLD who was sent by his irb compliance coordinator for amputation of his right pinkie toe Right foot diabetic foot ulcer: Failed outpatient wound management. Sent by his irb compliance coordinator, Dr. Diop, Afebrile with no leukocytosis. Podiatry consulted status post debridement, Started on Vanco. Continue pain control with oral and intravenous narcotics. 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 Resume home NPH 65 units twice daily on a decreased dose while nothing by mouth. Continue sliding scale coverage. Monitor Accu-Cheks. MAITE on CKD stage III: Creatinine trending down 1.94-1.68. IVF. Follow-up BMP. Hold SARAH inhibitor for now. Hypertension/hyperlipidemia: Chronic, stable. Continue home medications. Increase amlodipine DVT prophylaxis: TEDs. Hold off on SCDs with probable underlying PAD. Start chemical prophylaxis when okay with surgery. Krystle Mccormick MD October 02, 2016 15:26
[2016-10-02 16:08] VITALS: BP 162/80; PULSE 53; RESP 18; TEMP 97.5; O2SAT 98
--- NOTE | 2016-10-02 18:48 | PD.POD ---
Subjective Podiatric Problems s/p R 5th digit amputation s/p Left calcaneal bone biopsy DOS 08/01/16 Doing well at bedside this am. Pain scale used: 0-10 numeric scale Pain score: 0 Past Med/Surg/Social History Social History Smoking Status: Never Smoker Objective Vital Signs Vital Signs Date Time Temp Pulse Resp B/P Pulse Ox O2 Delivery O2 Flow Rate FiO2 10/02/16 16:08 97.5 53 18 162/80 98 10/02/16 12:08 96.3 53 18 165/71 98 10/02/16 07:53 97.2 60 18 142/74 98 10/02/16 04:00 97.0 57 18 133/63 97 10/02/16 00:00 98.5 58 18 160/78 98 10/01/16 20:00 97.6 65 20 172/79 96 10/01/16 18:50 98 21 Coded Allergies: Penicillin (Verified Allergy, Severe, 09/28/16) CHILDHOOD ALLERGY *MDRO Multi-Drug Resistant Organism (Verified Adverse Reaction, Unknown, ) MRSA foot wound 07/2015 Other Results Microbiology Date/Time Procedure Status Source Growth 09/29/16 17:45 Gram Stain - Final Complete Wound Toe 09/29/16 17:45 Wound Culture - Final Complete Wound Toe HEAVY GROWTH NORMAL SKIN LATASHA... 09/29/16 17:45 Fungal Smear - Final Resulted Wound Toe NO FUNGAL ELEMENTS SEEN. 09/29/16 17:45 Fungal Culture Resulted Wound Toe Pending 09/29/16 17:45 Acid Fast Stain - Final Resulted Wound Toe NO ACID FAST BACILLI SEEN 09/29/16 17:45 Mycobacterial Culture Resulted Wound Toe Pending Laboratory Tests Test 09/29/16 10/01/16 07:11 06:01 White Blood Count 9.1 TH/MM3 Red Blood Count 3.89 MIL/MM3 Hemoglobin 10.4 GM/DL Hematocrit 30.9 % Mean Corpuscular Volume 79.5 FL Mean Corpuscular Hemoglobin 26.8 PG Mean Corpuscular Hemoglobin 33.7 % Concent Red Cell Distribution Width 15.2 % Platelet Count 339 TH/MM3 Mean Platelet Volume 7.9 FL Neutrophils (%) (Auto) 67.1 % Lymphocytes (%) (Auto) 23.3 % Monocytes (%) (Auto) 6.9 % Eosinophils (%) (Auto) 2.3 % Basophils (%) (Auto) 0.4 % Neutrophils # (Auto) 6.1 TH/MM3 Lymphocytes # (Auto) 2.1 TH/MM3 Monocytes # (Auto) 0.6 TH/MM3 Eosinophils # (Auto) 0.2 TH/MM3 Basophils # (Auto) 0.0 TH/MM3 CBC Comment DIFF FINAL Differential Comment Prothrombin Time 11.2 SEC Prothromb Time International 1.0 RATIO Ratio Total Bilirubin 0.3 MG/DL Aspartate Amino Transf 22 U/L (AST/SGOT) Alanine Aminotransferase 20 U/L (ALT/SGPT) Alkaline Phosphatase 116 U/L Total Protein 7.4 GM/DL Albumin 2.4 GM/DL Sodium Level 141 MEQ/L Potassium Level 4.0 MEQ/L Chloride Level 107 MEQ/L Carbon Dioxide Level 28.6 MEQ/L Anion Gap 5 MEQ/L Blood Urea Nitrogen 21 MG/DL Creatinine 1.47 MG/DL Estimat Glomerular Filtration 49 ML/MIN Rate Random Glucose 65 MG/DL Calcium Level 8.9 MG/DL Exam-Podiatry Dermatological Exam Ulcers: Location/Measurements b/l Intact sutures at surgical sites. No purulence. No erythema, no edema. NVS unchanged. Assessment & Plan Diagnosis: (1) Osteomyelitis Status: Acute (2) Diabetic foot ulcer associated with type 2 diabetes mellitus Status: Acute A/P Pending bone biopsy. If positive plan for 6 weeks IV abx. Dressing change on 10/02/16. Keep clean dry and intact untill f/u with Dr Randall. OK to d/c per Podiatry once abx recommendation per ID completed. OK to WB as tolerated. Plan for f/u with Dr Randall as an out patient. Sabina Barrientos DPM October 02, 2016 18:48
[2016-10-02 20:00] VITALS: BP 178/80; PULSE 65; RESP 20; TEMP 97.8; O2SAT 98
[2016-10-02] MEDS: PRAVASTATIN SOD 20 MG TAB PO SCH (21:27)
[2016-10-03] VITALS: BP 177/77; PULSE 62; RESP 18; TEMP 97.1; O2SAT 98
[2016-10-03 04:00] VITALS: BP 138/74; PULSE 62; RESP 20; TEMP 96.2; O2SAT 98
[2016-10-03] MEDS: INSULIN ASPART SUPPLEMENTAL SCALE SQ SCH ×4 (06:08→21:10)
[2016-10-03] MEDS: DOCUSATE SODIUM 100 MG CAP PO SCH ×2 (06:08→16:55)
[2016-10-03] MEDS ORDERED: PHARMACY ORDERED LAB ONE (07:45)
[2016-10-03 08:10] VITALS: BP 152/80; PULSE 64; RESP 18; TEMP 97.5; O2SAT 97
[2016-10-03] MEDS: SODIUM CHLORIDE 0.9% FLUSH 10 ML FLUSH IV FLUSH SCH ×2 (08:18→20:22)
[2016-10-03] MEDS: INSULIN HUMAN NPH 1,000 UNITS/10 ML VIAL SQ SCH ×2 (08:18→16:55)
[2016-10-03] MEDS: METOPROLOL TARTRATE 50 MG TAB PO SCH ×2 (08:18→21:09)
[2016-10-03] MEDS: VANCOMYCIN INJ 2,000 MG in SODIUM CHLORID 0.9% 500 ML INJ 500 ML IV SCH (08:19)
[2016-10-03] MEDS: SODIUM CHLOR 0.9% 1000 ML INJ 1,000 ML IV SCH ×2 (08:19→16:55)
[2016-10-03 12:00] VITALS: BP 175/80; PULSE 65; RESP 18; TEMP 97.7; O2SAT 100
--- NOTE | 2016-10-03 14:18 | HHI.PR ---
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 He asked why He go home I explained that we are waiting on the pathology to or twitch will address the decision on his antibiotic management post discharge Objective Vitals Vital Signs Date Time Temp Pulse Resp B/P Pulse Ox O2 Delivery O2 Flow Rate FiO2 10/03/16 12:00 97.7 65 18 175/80 100 10/03/16 08:10 97.5 64 18 152/80 97 10/03/16 04:00 96.2 62 20 138/74 98 10/03/16 00:00 97.1 62 18 177/77 98 10/02/16 20:00 97.8 65 20 178/80 98 10/02/16 16:08 97.5 53 18 162/80 98 I/O 10/02/16 10/02/16 10/02/16 10/03/16 10/03/16 10/03/16 07:00 15:00 23:00 07:00 15:00 23:00 Intake Total 360 ml 600 ml Output Total 240 ml 1100 ml Balance 360 ml 360 ml -1100 ml Intake Oral 360 ml 600 ml Output Urine Total 240 ml 1100 ml # Voids 1 1 # Bowel Movements 1 0 0 Result Diagram: 09/29/16 0711 10/03/16 0800 Objective Remarks GENERAL: Well-developed well-nourished. In no acute distress. SKIN: Warm and dry. Right foot in gauze, vesicle skin rash on the left arm around the elbow with a 1.5 cm tense bulla HEENT: Normocephalic. Pupils equal and round. Mucous membranes pink and moist. CARDIOVASCULAR: Regular rate and rhythm. No murmur appreciated. RESPIRATORY: No accessory muscle use. Clear to auscultation. Breath sounds equal bilaterally. GASTROINTESTINAL: Abdomen soft, non-tender, nondistended. Bowel sounds x4. MUSCULOSKELETAL: Decreased hair in the bilateral ankles with palpable peripheral pulses of the left foot and faint pulses on the right. No clubbing or cyanosis. No edema. NEUROLOGICAL: Awake and alert. No focal neurological deficits. Moves upper and lower extremities spontaneously. Normal speech. PSYCHIATRIC: Appropriate mood and affect; insight and judgment normal. A/P Assessment and Plan 10/02: Continue current care on vancomycin awaiting bone biopsy culture result, creatinine improved to 1.47, monitor BMP 10/03: Awaiting pathology for for bone biopsy, continue current care A/P: 60-year-old male with a past medical history of HTN, DM, HLD who was sent by his neckties painter for amputation of his right pinkie toe Right foot diabetic foot ulcer: Failed outpatient wound management. Sent by his neckties painter, Dr. Diop, Afebrile with no leukocytosis. Podiatry consulted status post debridement, Started on Vanco. Continue pain control with oral and intravenous narcotics. Awaiting ID consult for intermediate antibiotic regimen The cecal or skin rash on the right upper extremity with multiple old CAT Scratches: ID consulted Diabetes mellitus: With hyperglycemia at this time, random glucose 341. Resume home NPH 65 units twice daily on a decreased dose while nothing by mouth. Continue sliding scale coverage. Monitor Accu-Cheks. MAITE on CKD stage III: Creatinine trending down 1.94-1.68. IVF. Follow-up BMP. Hold SARAH inhibitor for now. Hypertension/hyperlipidemia: Chronic, stable. Continue home medications. Increase amlodipine DVT prophylaxis: TEDs. Hold off on SCDs with probable underlying PAD. Start chemical prophylaxis when okay with surgery. Krystle Mccormick MD October 03, 2016 14:18
[2016-10-03 16:23] VITALS: BP 139/62; PULSE 70; RESP 18; TEMP 96.1; O2SAT 100
[2016-10-03 20:00] VITALS: BP 166/77; PULSE 64; RESP 20; TEMP 97.4; O2SAT 98
[2016-10-03] MEDS: PRAVASTATIN SOD 20 MG TAB PO SCH (21:09)
[2016-10-03] MEDS: ENALAPRILAT 1.25 MG/ML VIAL IV PUSH PRN (21:10)
--- NOTE | 2016-10-03 22:17 | HHI.PR ---
Addendum to Inpatient Note Additional Information pt's path was reviewed he has no heel osteo + R toe osteo, pt is on vancomycin clx with nl skin adamaris previously grew MRSA in Jul will cont vancomycin x 6 wks fu with podiatry Lenore Brandon MD October 03, 2016 22:17
--- NOTE | 2016-10-03 22:18 | HHI.FF ---
Infusion Therapy Location of Infusion Therapy: Home Health Care IV Infusion Order Patient Information Patient Weight 94.5 kg Diagnosis: Coded Allergies: Penicillin (Verified Allergy, Severe, 09/28/16) CHILDHOOD ALLERGY *MDRO Multi-Drug Resistant Organism (Verified Adverse Reaction, Unknown, ) MRSA foot wound 07/2015 Administer Medication Vancomycin 1.5 grams IV q 24 hours Start Treatment: October 04, 2016 Stop Treatment: Nov 15, 2016 Additional Information Venous access: PICC Line Additional Instructions [x] Peripheral flush and dressing changes per protocol [x] Implanted port and central vp cardiovascular service line: * Implanted port: 10 ml Normal Saline followed by 5 ml Heparin 100 units/ml Heparin flush after each use and monthly to maintain. [] May leave port accessed during therapy. [] May leave peripheral site accessed for duration of therapy. [x] If patient has SOB or respiratory distress, check oxygen saturation. If less than 90% or clinical signs of respiratory distress, administer oxygen at 2 L/min. via nasal cannula and notify physician. [x] Anaphylaxis/Reaction orders: * Stop infusion. * Keep IV line open with saline flush. * Notify physician. * Monitor vital signs every 15 minutes until symptoms resolve. * Check Oxygen saturation; Oxygen at 2 L/min. via nasal cannula if less than 90% or clinical signs of respiratory distress. * Administer diphenhydramine (Benadryl) 25 mg IV STAT, (unless patient has received as pre-med). May repeat once, if necessary. * Solu-Cortef 250 mg IVP over 30-60 seconds, use 100 mg vials for each dissolution. * Epinephrine (1mg/1 ml) 0.3 mg subcutaneously or IVP now with any signs of respiratory distress. * Check with physician for new additional pre-med orders if patient is re- challenged or re-treated. [x] May remove PICC line when treatment complete, after confirming with Physician. [x] If the patient is admitted to the hospital, the ED, or transferred via [facility] , complete transfer form including medication reconciliation order sheet. Laboratory Tests Weekly Labs: CBC w/diff, Creatinine, SED Rate, Vancomycin Trough Lenore Brandon MD October 03, 2016 22:18
[2016-10-04] VITALS: BP 160/77; PULSE 59; RESP 21; TEMP 96.4; O2SAT 98
[2016-10-04 04:25] VITALS: BP 166/62
[2016-10-04] MEDS: ENALAPRILAT 1.25 MG/ML VIAL IV PUSH PRN (05:38)
[2016-10-04] MEDS: DOCUSATE SODIUM 100 MG CAP PO SCH (05:51)
[2016-10-04] MEDS: INSULIN ASPART SUPPLEMENTAL SCALE SQ SCH ×4 (06:04→16:20)
[2016-10-04 08:00] VITALS: BP 99/52; PULSE 77; RESP 20; TEMP 96.7; O2SAT 99
[2016-10-04] MEDS: METOPROLOL TARTRATE 50 MG TAB PO SCH (08:24)
[2016-10-04] MEDS: SODIUM CHLORIDE 0.9% FLUSH 10 ML FLUSH IV FLUSH SCH (08:27)
[2016-10-04] MEDS: INSULIN HUMAN NPH 1,000 UNITS/10 ML VIAL SQ SCH ×2 (08:27→17:00)
[2016-10-04] MEDS ORDERED: HYDR-3516 PO (11:46)
--- NOTE | 2016-10-04 11:53 | HHI.DS ---
Discharge Summary Admission Date Sep 28, 2016 at 18:25 Discharge Date: October 04, 2016 Admitting Diagnosis diabetes/toe amputation (1) Hyperlipidemia ICD Code: E78.5 (2) HTN (hypertension) ICD Code: I10 (3) Osteomyelitis ICD Code: M86.9 (4) Diabetic foot ulcer associated with type 2 diabetes mellitus ICD Code: E11.621 Procedures Foot I&D by podiatry with bone biopsy Brief History - From Admission 60-year-old male with a past medical history of HTN, DM, HLD who was sent by his local operator for amputation of his right pinkie toe. The patient states that he's had an ulcer on his right. Toe for quite some time, and has been receiving outpatient wound care management with his local operator, Dr. Randall. He states that due to the worsening appearance of the wound, his local operator recommended he come to the hospital for admission and amputation of his pinky toe tomorrow. Otherwise, the patient has been doing well and denies any complaints. He denies any fevers or chills. He denies any pain in his foot. He denies any chest pain, shortness of breath, headache, lightheadedness, dizziness, numbness, tingling, nausea, vomiting, diarrhea, constipation. He does state that he had a fall a few weeks ago, with some occasional spasms of his right flank. CBC/BMP: 10/03/16 0800 Significant Findings Laboratory Tests Test 10/03/16 08:00 Estimat Glomerular Filtration 57 ML/MIN (>89) Rate Vancomycin Level Trough 23.2 MCG/ML (5.0-10.0) PE at Discharge GENERAL: Well-developed well-nourished. In no acute distress. SKIN: Warm and dry. Right foot in gauze, vesicle skin rash on the left arm around the elbow with a 1.5 cm tense bulla HEENT: Normocephalic. Pupils equal and round. Mucous membranes pink and moist. CARDIOVASCULAR: Regular rate and rhythm. No murmur appreciated. RESPIRATORY: No accessory muscle use. Clear to auscultation. Breath sounds equal bilaterally. GASTROINTESTINAL: Abdomen soft, non-tender, nondistended. Bowel sounds x4. MUSCULOSKELETAL: Decreased hair in the bilateral ankles with palpable peripheral pulses of the left foot and faint pulses on the right. No clubbing or cyanosis. No edema. NEUROLOGICAL: Awake and alert. No focal neurological deficits. Moves upper and lower extremities spontaneously. Normal speech. PSYCHIATRIC: Appropriate mood and affect; insight and judgment normal. Hospital Course A/P: 60-year-old male with a past medical history of HTN, DM, HLD who was sent by his local operator for amputation of his right pinkie toe Right foot diabetic foot ulcer: Failed outpatient wound management. Sent by his local operator, Dr. Diop, Afebrile with no leukocytosis. Podiatry consulted status post debridement, Started on Vanco. Continue pain control with oral and intravenous narcotics. ID consulted and recommended continuing vancomycin followed the biopsy result recommended 6 weeks of vancomycin, home health care and picccline ordered MAITE on CKD stage III Creatinine trended down, improved with IVF. We held SARAH inhibitor, and resume at discharge Diabetes mellitus management with titration of basal insulin insulin sliding scale [id number] encounter performed with the patient on discharge day, as well as physical exam, summary of hospitalization course and postdischarge plan has been D/W the patient. D/W nurse D/W rehabilitation case coordinator. Discharge medications reviewed and printed and signed, post discharge follow up visit with PCP and other specialist as well as Brief hospital course and discharge summary has been placed. Pt Condition on Discharge: Fair Discharge Disposition: Disch w/ Home Health Serv Discharge Time: > 30 minutes Discharge Instructions DIET: Follow Instructions for: Heart Healthy Diet, Diabetic Diet Activities you can perform: See Additionl Instruction Other Activity Instructions: per podiatry recs Follow up Referrals: Podiatry - 1 Week with Sabina Barrientos DPM New Medications: Hydrocodone-Acetaminophen (Hydrocodone-Acetaminophen) 5-325 mg Tab 1 TAB PO Q4H PRN PAIN SCALE 3 TO 5 #15 TAB Continued Medications: Amlodipine (Amlodipine) 5 Mg Tab 5 MG PO DAILY Blood Pressure Management #30 Ref [address] (Aspirin DR) 81 Mg Tabdr 81 MG PO DAILY Ref 0 TAB Insulin Human NPH Inj (Humulin N Inj) 1,000 Unit/10 Ml Vial 40-60 UNITS SQ BID Blood Sugar Management #10 Ref 0 ML Insulin Human Regular Inj (Humulin R Inj) 1,000 Unit/10 Ml Vial 20 UNITS SQ BIDAC Blood Sugar Management #10 Ref 0 ML Lisinopril (Lisinopril) 20 Mg Tab 20 MG PO BID #30 Ref 0 TAB Metoprolol Tartrate (Metoprolol Tartrate) 50 Mg Tab 50 MG PO BID #60 Ref 0 TAB Pravastatin (Pravastatin) 20 Mg Tab 20 MG PO HS Cholesterol Management #30 Ref 0 TAB Krystle Mccormick MD October 04, 2016 11:53
[2016-10-04] MEDS: SODIUM CHLOR 0.9% 1000 ML INJ 1,000 ML IV SCH (12:05)
[2016-10-04 12:12] VITALS: BP 140/67; PULSE 74; RESP 20; TEMP 97.6; O2SAT 97
--- NOTE | 2016-10-04 12:51 | HHI.FF ---
Face to Face Verification Diagnosis: (1) Diabetic foot ulcer associated with type 2 diabetes mellitus (2) Osteomyelitis Home Health Nursing Order: Medical education IV medication administration I have seen patient Med Alcazar on 10/04/16. My clinical findings support the need for the requested home health care services because: Ltd mobility - disease progression Med compliance is questionable Infection w/ risk of complications I certify that my clinical findings support that this patient is homebound because: Post-op weakness Krystle Mccormick MD October 04, 2016 12:51
--- NOTE | 2016-10-04 13:06 | PD.POD ---
Subjective Podiatric Problems s/p R 5th digit amputation s/p Left calcaneal bone biopsy DOS 08/01/16 Doing well at bedside this am. Pain scale used: 0-10 numeric scale Pain score: 0 Past Med/Surg/Social History Social History Smoking Status: Never Smoker Objective Vital Signs Vital Signs Date Time Temp Pulse Resp B/P Pulse Ox O2 Delivery O2 Flow Rate FiO2 10/04/16 12:12 97.6 74 20 140/67 97 10/04/16 08:00 96.7 77 20 99/52 99 10/04/16 04:25 166/62 10/04/16 00:00 96.4 59 21 160/77 98 10/03/16 20:00 97.4 64 20 166/77 98 10/03/16 16:23 96.1 70 18 139/62 100 Coded Allergies: Penicillin (Verified Allergy, Severe, 09/28/16) CHILDHOOD ALLERGY *MDRO Multi-Drug Resistant Organism (Verified Adverse Reaction, Unknown, ) MRSA foot wound 07/2015 Assessment & Plan Diagnosis: (1) Osteomyelitis Status: Acute (2) Diabetic foot ulcer associated with type 2 diabetes mellitus Status: Acute A/P Bone biopsy -ve for OM at the calcaneus Plan for 4-6 weeks IV abx. Dressing change on 10/02/16. Keep clean dry and intact untill f/u with Dr Randall. OK to d/c per Podiatry once abx recommendation per ID completed. OK to WB as tolerated. Plan for f/u with Dr Randall as an out patient. Sabina Barrientos DPM October 04, 2016 13:06
[2016-10-04] MEDS ORDERED: SODIUM CHLORIDE 0.9% FLUSH 10 ML FLUSH IV FLUSH PRN (14:15)
--- NOTE | 2016-10-04 14:44 | RADRPT ---
EXAM DATE/TIME: 10/04/2016 14:20 [facility] COMPARISON: CHEST SINGLE AP, July 26, 2015, 17:04. INDICATIONS : PICC line placment. MEDICAL HISTORY : None. SURGICAL HISTORY : None. ENCOUNTER: Initial ACUITY: 1 day PAIN SCORE: 0/10 LOCATION: Bilateral chest FINDINGS: A single view of the chest demonstrates the lungs to be symmetrically aerated without evidence of mas s, infiltrate or effusion. The cardiomediastinal contours are unremarkable. Osseous structures are intact. A left-sided PICC line is observed with the tip at the cavoatrial junction. CONCLUSION: Left-sided PICC line in good position. Danyel Cabezas Jr., MD on October 04, 2016 at 14:42 Board Certified Radiologist. This report was verified electronically.
[2016-10-04] MEDS ORDERED: PHARMACY ORDERED LAB ONE (17:45)
[2016-10-04] MEDS ORDERED: VANCOMYCIN INJ 1,500 MG in SODIUM CHLORID 0.9% 500 ML INJ 500 ML IV SCH (18:00)
[2016-10-05] MEDS ORDERED: SODIUM CHLORIDE 0.9% FLUSH 10 ML FLUSH IV FLUSH SCH (09:00)
== END 2016-10-04 17:12 | disposition home health service (06) | DRG 617 ==
LOC: EDBD → NEPC 14:01 → NEDA 18:25 → N05A 18:49
PROVIDERS: ADMIT Hospitalist; ATTEND Hospitalist
PROC: 0QBM3ZX Excision of Left Tarsal, Percutaneous Approach, Diagnostic (ICD-10-PCS; 2016-09-29)
PROC: 0Y6X0Z0 Detachment at Right 5th Toe, Complete, Open Approach (ICD-10-PCS; principal; 2016-09-29 17:02)
PROC: 02HV33Z Insertion of Infusion Device into Superior Vena Cava, Percutaneous Approach (ICD-10-PCS; 2016-10-04)
PROC: B548ZZA Ultrasonography of Superior Vena Cava, Guidance (ICD-10-PCS; 2016-10-04)
DX: E11.621 Type 2 diabetes mellitus with foot ulcer (principal); M86.171 Other acute osteomyelitis, right ankle and foot; N17.9 Acute kidney failure, unspecified; E11.69 Type 2 diabetes mellitus with other specified complication; M86.671 Other chronic osteomyelitis, right ankle and foot; E11.22 Type 2 diabetes mellitus with diabetic chronic kidney disease; E11.65 Type 2 diabetes mellitus with hyperglycemia; Z79.4 Long term (current) use of insulin; I12.9 Hypertensive chronic kidney disease with stage 1 through stage 4 chronic kidney disease, or unspecified chronic kidney disease; N18.3 Chronic kidney disease, stage 3 (moderate); E78.5 Hyperlipidemia, unspecified; Z79.82 Long term (current) use of aspirin; R23.8 Other skin changes
CPT/HCPCS: 36569; 71010; 73620; 76000; 76937; 80048; 80053; 80202; 82565; 82948; 85025; 85610; 87015; 87070; 87102; 87116; 87205; 87206; 88305; 88307; 88311; 93005; 93923; 96372; C1751; J1580; J1815; J2405; J3010; J3370; J7030; J7040